=== PATIENT | female | born 1970 | race Caucasian/White ===

== ENCOUNTER → 2016-11-05 | Outpatient (CLI) | payer OTHER ==
[~2016-11-05] MED LIST: APPLE CIDER VINEGAR PO; CITA40TA12 PO; LEVO75TA5 PO; LIOT5TAB9 PO; MULTTAB58 PO; PRED10TA PO
[2016-11-05 11:40] LABS: THYROID STIMULATING HORMONE 10.6 uIu/ml (0.300-4.500)
== END | disposition home or self-care (01) ==
LOC: C.LABBC 09:05
PROVIDERS: ATTEND Family Medicine
DX: E03.9 Hypothyroidism, unspecified (principal)

== ENCOUNTER → 2016-12-06 | Outpatient (CLI) | payer OTHER ==
[2016-12-06 11:09] LABS: ESTIMATED AVERAGE GLUCOSE 108 mg/dl; HA1C FLAG Normal (Normal)
== END | disposition home or self-care (01) ==
LOC: C.LABBC 08:32
PROVIDERS: ATTEND Family Medicine
DX: E28.2 Polycystic ovarian syndrome (principal)

== ENCOUNTER → 2016-12-09 | Outpatient (CLI) | payer OTHER | END | disposition home or self-care (01) | LOC: C.PATHSPEC 16:18 | PROVIDERS: ATTEND Dermatology | DX: L90.5 Scar conditions and fibrosis of skin (principal) ==

== ENCOUNTER → 2017-01-17 | Outpatient (CLI) | payer OTHER ==
[2017-01-17 16:58] LABS: THYROID STIMULATING HORMONE 0.05 uIu/ml (0.300-4.500)
== END | disposition home or self-care (01) ==
LOC: C.LAB 15:09
PROVIDERS: ATTEND Surgery
DX: E06.3 Autoimmune thyroiditis (principal)

== ENCOUNTER → 2017-03-05 | Outpatient (CLI) | payer OTHER ==
[2017-03-05 13:53] LABS: INSULIN FASTING 11.3 mU/L (3-25)
[2017-03-05 14:12] LABS: FERRITIN 88.3 ng/ml (8.0-388.0); THYROID STIMULATING HORMONE 0.132 uIu/ml (0.300-4.500)
[2017-03-05 14:28] LABS: CALCULATED INSULIN SENSITIVITY 0.338; GLUCOSE LOG 1.9031
== END | disposition home or self-care (01) ==
LOC: C.LABBC 10:55
PROVIDERS: ATTEND Internal Medicine Endocrinology, Diabetes & Metabolism
DX: E55.9 Vitamin D deficiency, unspecified (principal); N95.9 Unspecified menopausal and perimenopausal disorder; E03.9 Hypothyroidism, unspecified

== ENCOUNTER → 2017-04-23 | Outpatient (CLI) | payer OTHER ==
[2017-04-23 11:17] LABS: THYROID STIMULATING HORMONE 0.049 uIu/ml (0.300-4.500)
== END | disposition home or self-care (01) ==
LOC: C.LAB1850 09:57
PROVIDERS: ATTEND Family Medicine
DX: E06.3 Autoimmune thyroiditis (principal)

== ENCOUNTER → 2017-05-14 | Outpatient (CLI) | payer OTHER ==
[2017-05-14 11:15] LABS: CHOLESTEROL/HDL RATIO 4.8
== END | disposition home or self-care (01) ==
LOC: C.LABBC 07:41
PROVIDERS: ATTEND Family Medicine
DX: E78.5 Hyperlipidemia, unspecified (principal)

== ENCOUNTER → 2017-06-09 | Outpatient (CLI) | payer OTHER ==
[2017-06-09 11:11] LABS: THYROID STIMULATING HORMONE 0.229 uIu/ml (0.300-4.500)
== END | disposition home or self-care (01) ==
LOC: C.LABBC 08:10
PROVIDERS: ATTEND Internal Medicine Endocrinology, Diabetes & Metabolism
DX: E03.9 Hypothyroidism, unspecified (principal)

== ENCOUNTER → 2017-07-30 | Outpatient (CLI) | payer OTHER ==
[2017-07-30 16:54] LABS: HEMATOCRIT 39.4 % (37-47); MEAN CELL VOLUME 91.6 fL (80-100); MEAN CORPUSCULAR HEMOGLOBIN 31.9 pg (25-34); MEAN CORPUSCULAR HGB CONC 34.8 g/dl (32-36); MEAN PLATELET VOLUME 10.2 fL (7.4-10.4); PLATELET COUNT 310 K/uL (130-400); WHITE BLOOD COUNT 5.96 K/uL (4.8-10.8)
[2017-07-30 17:12] LABS: ALT/SGPT 27 U/L (12-78); AST/SGOT 16 U/L (15-37); BLOOD UREA NITROGEN 14 mg/dl (7-18); BUN/CREATININE RATIO 17.5 (10-20); CALCIUM 8.7 mg/dl (8.5-10.1); CARBON DIOXIDE 23 mmol/L (21-32); CHLORIDE 110 mmol/L (98-107); CREATININE 0.82 mg/dl (0.60-1.20); GLUCOSE 102 mg/dl (70-99); POTASSIUM 3.8 mmol/L (3.5-5.1); SODIUM 138 mmol/L (136-145)
[2017-07-30 17:22] LABS: ALB/GLOB RATIO 0.9 (0.9-2); ALKALINE PHOSPHATASE 70 U/L (45-117); THYROID STIMULATING HORMONE 0.448 uIu/ml (0.300-4.500)
== END | disposition home or self-care (01) ==
LOC: C.LABBC 13:15
PROVIDERS: ATTEND Family Medicine
DX: R53.83 Other fatigue (principal)

== ENCOUNTER → 2017-10-24 | Outpatient (CLI) | payer OTHER | END | disposition home or self-care (01) | LOC: C.LABBC 10:09 | PROVIDERS: ATTEND Internal Medicine Endocrinology, Diabetes & Metabolism | DX: E03.9 Hypothyroidism, unspecified (principal) ==

== ENCOUNTER → 2017-12-16 | Outpatient (CLI) | payer OTHER ==
--- NOTE | 2017-12-16 15:14 | MAMMOGRAPHY REPORT ---
BILATERAL DIGITAL DIAGNOSTIC MAMMOGRAM TOMOSYNTHESIS WITH CAD AND TARGETED RIGHT ULTRASOUND: 12/16/2017 CLINICAL HISTORY: 47-year-old woman presents for follow-up in both breasts. Reassess a focal asymmet ry in the upper inner posterior right breast, and reassess punctate microcalcifications in the left l ateral breast. TECHNIQUE: Bilateral breast tomosynthesis in addition to standard 2D mammography was performed. Spot magnification left CC and ML views were also obtained. Current study was also evaluated with a Comp uter Aided Detection (CAD) system. COMPARISON: Comparison is made to exams dated: 12/16/2017 ultrasound, 06/18/2017 ultrasound, 06/18/2017 mammogram, 06/16/2017 mammogram, 06/13/2016 mammogram, and 06/12/2015 mammogram - [facility]. BREAST COMPOSITION: The tissue of both breasts is heterogeneously dense, which may obscure small mas ses. FINDINGS: The glandular pattern of the right breast is similar to prior mammograms. A lobulated foca l asymmetry is again seen in the medial, posterior right breast, thought to project in the 2:00 to 3: 00 axis based on the MLO tomosynthesis images. On the cc view it measures 2.3 cm in maximum dimensio n and the size and visual appearance are unchanged dating back to 06/16/2017. 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 No other new suspicious masses, asymmetries, calcifications o r areas of architectural distortion are identified in the right breast. The spot magnification views of the left breast redemonstrate punctate and round microcalcifications throughout the lateral breast, without evidence of a new suspicious grouping or cluster. There is a nodular asymmetry in the middle one third of the left breast along the posterior nipple line identifi ed on CC tomosynthesis slice 42/73 measuring 6 mm, which could represent normal tissue although furth er evaluation with ultrasound was performed. No other areas of architectural distortion, calcificati on, asymmetries or masses are identified in the left breast. Repeat targeted ultrasound was performed throughout the medial right breast and along the sagittal pl ane of the nipple in the left breast. Throughout the right breast on targeted ultrasound, sonographi obed normal tissue is seen without a suspicious solid or cystic mass. In the 11:00, 12:00, 1:00, re troareolar and 6:00 axes of the left breast, sonographically normal tissue is seen without a suspicio us solid or cystic mass. It should be noted that the patient reported pain with ultrasound scanning in both breasts, particularly in the 11:00 to 12:00 periareolar left breast, and in the 3:00 right br east. In the areas of pain there is no evidence of a suspicious sonographic abnormality. IMPRESSION: ACR-BI-RADS CATEGORY 3: PROBABLY BENIGN, TARGETED ULTRASOUND ACR-BI-RADS CATEGORY 3: PRO BABLY BENIGN 1. Stable focal asymmetry in the upper inner posterior right breast that is slightly more prominent comparing to more remote prior mammograms but has the appearance of normal fibroglandular tissue on t he tomosynthesis images and there is no suspicious sonographic correlate. Another six-month follow-u p right diagnostic tomosynthesis mammogram and possible ultrasound is recommended to ensure longer st ability. 2. Stable scattered and loosely grouped punctate and round microcalcifications in the lateral left b reast that most likely represent benign fibrocystic change. Another six-month follow-up left diagnos tic mammogram including spot magnification views is recommended to ensure longer stability. 3. A 6 mm nodular asymmetry was seen on the left CC tomosynthesis images, for which no suspicious so nographic correlate was identified. This most likely represented normal overlapping tissue. These results and recommendations were discussed with the patient at the time of the exam. She tenta tively scheduled a follow-up appointment prior to leaving our department. Approximately 10% of breast cancers are not detected with mammography. A negative mammographic report should not delay biopsy if a clinically suggestive mass is present. Eryn Krishnamurthy M.D. ay/:12/16/2017 13:53:44 Division Order Technician: Jodie Parikh, [facility] letter sent: Follow Up Recommended 3 BI-RADS Code: ACR-BI-RADS Category 3: Probably Benign Ultrasound BI-RADS: ACR-BI-RADS Category 3: Pr obably Benign
== END | disposition home or self-care (01) ==
LOC: C.MAMM 09:59
PROVIDERS: ATTEND Obstetrics & Gynecology
DX: R92.0 Mammographic microcalcification found on diagnostic imaging of breast (principal); N64.89 Other specified disorders of breast

== ENCOUNTER → 2017-12-26 | Outpatient (CLI) | payer OTHER ==
[~2017-12-26] MED LIST changes: +GADAVIST IV PRN
--- NOTE | 2017-12-29 15:10 | MAMMOGRAPHY REPORT ---
BREAST MRI OF BOTH BREASTS : 12/26/2017 CLINICAL HISTORY: Asymmetry within the right upper inner quadrant seen mammographically, for which MR I was recommended to further evaluate. Also with loosely grouped benign-appearing calcifications wit hin the left lateral breast seen on recent diagnostic mammograms. Family history of breast cancer. COMPARISON: Comparison is made to exams dated: 12/16/2017 mammogram, 12/16/2017 ultrasound, 06/18/2017 ma mmogram, 06/16/2017 mammogram, 06/13/2016 mammogram, and 06/12/2015 mammogram - [facility]ter. Technique: The patient was placed prone in a dedicated breast imaging coil. Precontrast axial T1-keshia ghted, axial T2-weighted fat saturation, and axial T1-weighted fat saturation images were obtained. After the administration of 9.5 mL of Gadavist IV contrast, sequential T1-weighted fat saturation mary ges were obtained. Subtraction images were obtained of the dynamic contrast enhanced sequences, and 3-D reformations were performed. The Spine[employer] software was used for kinetic analysis. Findings: There is moderate background parenchymal enhancement bilaterally which reduces the sensitivity of the exam. There are no suspicious enhancing masses or areas of abnormal non-mass enhancement seen withi n either breast. Multiple small foci of enhancement are seen scattered throughout both breasts which are considered benign given the multiplicity and bilaterality and likely represent normal background parenchymal enhancement. The mammographic asymmetry within the right upper inner quadrant posterior ly enhances similar to the other fibroglandular tissue seen in bilateral breasts and demonstrates a b enign type persistent kinetic pattern and is therefore probably benign and likely represents normal f ibroglandular tissue (series [id number] image [id number]). There is no evidence of axillary adenopathy. The chest wall structures are negative. A T2 hyperinte nse round mass is seen within the upper mid abdomen on the last slice of the T2 weighted sequences, w hich is not well evaluated on this exam but was previously shown to represent a hepatic hemangioma on an abdominal CT dated 04/20/2012. IMPRESSION: ACR-BI-RADS CATEGORY 3: PROBABLY BENIGN No MRI evidence of malignancy in either breast. The asymmetry in the right upper inner quadrant enha nces similar to the other fibroglandular tissue seen within both breasts and is probably benign and l ikely represents normal fibroglandular tissue. Recommend bilateral diagnostic tomosynthesis mammogra ms in 6 months to confirm longer stability of the right breast asymmetry mammographically and to foll ow-up the loosely grouped calcifications in the left breast. Grisel Correa M.D. ah/:12/27/2017 12:05:58 Ad Setter: wire stitcher machine, [facility] letter sent: Follow Up Recommended 3 BI-RADS Code: ACR-BI-RADS Category 3: Probably Benign
== END | disposition home or self-care (01) ==
LOC: C.MRI 11:41
PROVIDERS: ATTEND Obstetrics & Gynecology
DX: R92.2 Inconclusive mammogram (principal); Z80.3 Family history of malignant neoplasm of breast; N64.89 Other specified disorders of breast

== ENCOUNTER → 2018-03-16 | Outpatient (CLI) | payer OTHER ==
[~2018-03-16] MED LIST changes: -GADAVIST IV PRN
== END | disposition home or self-care (01) ==
LOC: C.LABBC 15:14
PROVIDERS: ATTEND Internal Medicine Endocrinology, Diabetes & Metabolism
DX: E03.9 Hypothyroidism, unspecified (principal)

== ENCOUNTER → 2018-03-18 | Outpatient (CLI) | payer OTHER ==
[2018-03-19 06:58] LABS: HEMOGLOBIN A1C 5.6 % (4.5-5.6)
[2018-03-23 18:19] LABS: INSULIN LIKE GROWTH FACTOR-I 170 ng/mL (52-328)
== END | disposition home or self-care (01) ==
LOC: C.LAB1850 14:55
PROVIDERS: ATTEND Internal Medicine Endocrinology, Diabetes & Metabolism
DX: E06.3 Autoimmune thyroiditis (principal); E28.2 Polycystic ovarian syndrome

== ENCOUNTER → 2018-03-19 | Outpatient (CLI) | payer OTHER | END | disposition home or self-care (01) | LOC: C.LABSPEC 13:16 | PROVIDERS: ATTEND Internal Medicine Endocrinology, Diabetes & Metabolism | DX: E06.3 Autoimmune thyroiditis (principal); E28.2 Polycystic ovarian syndrome ==